=== PATIENT | female | born 1965 | race Caucasian/White ===

== ENCOUNTER 2020-08-10 08:55 | Day surgery (SDC) | payer OTHER ==
[~2020-08-10 08:55] MED LIST: Lactated Ringers 1,000 ML IV SCH; Sodium Chloride 0.9% 10 ML SDV IV PRN; Sodium Chloride 0.9% 10 ML Syringe FLUSH PRN; Sodium Chloride 0.9% 2.5 ML Syringe FLUSH PRN; ceFAZolin 2 GM in Premix Bag 1 BAG IV ONE
--- NOTE | 2020-08-10 09:33 | PCM.PREANE ---
Preanesthetic Assessment - Anesthesia/Transfusion/Family Hx Anesthesia History: Prior Anesthesia Without Reaction Type of Anesthesia Reaction: Other (see below) (wakes up anxious after anesthesia) Family History of Anesthesia Reaction: No Transfusion History: No Prior Transfusion(s) Intubation History: Unknown - Review of Systems General: No Symptoms Pulmonary: No Symptoms Cardiovascular: No Symptoms Gastrointestinal: No Symptoms Neurological: No Symptoms Other: Reports: None - Physical Assessment Height: 5 ft 9 in Weight: 80.739 kg ASA Class: 1 Mental Status: Alert & Oriented x3 Airway Class: Mallampati = 1 Dentition: Reports: Normal Dentition Thyro-Mental Finger Breadths: 3 Mouth Opening Finger Breadths: 3 ROM/Head Extension: Full Lungs: Clear to Auscultation, Normal Respiratory Effort Cardiovascular: Regular Rate, Regular Rhythm - Lab Values: Laboratory Last Values WBC 6.86 K/uL (4.0-11.0) 08/06/20 08:21 RBC 4.96 M/uL (4.30-5.90) 08/06/20 08:21 Hgb 14.9 g/dL (12.0-16.0) 08/06/20 08:21 Hct 46.8 % (36.0-46.0) H 08/06/20 08:21 MCV 94.4 fL (80.0-98.0) 08/06/20 08:21 MCH 30.0 pg (27.0-32.0) 08/06/20 08:21 MCHC 31.8 g/dL (31.0-37.0) 08/06/20 08:21 RDW Std Deviation 44.6 fl (28.0-62.0) 08/06/20 08:21 RDW Coeff of Yarelis 13 % (11.0-15.0) 08/06/20 08:21 Plt Count 256 K/uL (150-400) 08/06/20 08:21 MPV 10.30 fL (7.40-12.00) 08/06/20 08:21 Nucleated RBC % 0.0 /100WBC 08/06/20 08:21 Nucleated RBCs # 0 K/uL 08/06/20 08:21 - Allergies Allergies/Adverse Reactions: Allergies Allergy/AdvReac Type Severity Reaction Status Date / Time seasonal Allergy Itching Uncoded 08/04/20 09:04 - Blood Blood Available: No - Anesthesia Plan Pre-Op Medication Ordered: None - Acknowledgements Anesthesia Type Planned: General Anesthesia Pt an Appropriate Candidate for the Planned Anesthesia: Yes Alternatives and Risks of Anesthesia Discussed w Pt/Guardian: Yes Pt/Guardian Understands and Agrees with Anesthesia Plan: Yes PreAnesthesia Questionnaire HEENT History: Reports: Impaired Vision Other HEENT History: wears glasses Cardiovascular History: Reports: None, Other (See Below) (varicose veins) Respiratory History: Reports: None Gastrointestinal History: Reports: None Genitourinary History: Reports: Other (See Below) Other Genitourinary History: urinary urgency 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: Musculoskeletal History: Reports: Fracture Other Musculoskeletal History: states fractured right index finger in the past Neurological History: Reports: None Psychiatric History: Reports: None Endocrine/Metabolic History: Reports: None Hematologic History: Reports: None Immunologic History: Reports: None Oncologic (Cancer) History: Reports: None Dermatologic History: Reports: None - Infectious Disease History Infectious Disease History: Reports: None - Past Surgical History Head Surgeries/Procedures: Reports: None HEENT Surgical History: Reports: Tonsillectomy Cardiovascular Surgical History: Reports: None GI Surgical History: Reports: None Female Surgical History: Reports: Hysterectomy Other Female Surgeries/Procedures: had anterior\posterior repair when had hysterectomy in 2008 Musculoskeletal Surgical History: Reports: Other (See Below) (rt. index finger surgery ') - SUBSTANCE USE Tobacco Use Status *Q: Never Tobacco User - HOME MEDS Home Medications: Home Meds Cartilage/Collagen/Bor/Hyalur [Joint Health Tablet] 1 tab PO ASDIRECTED 08/04/20 [History] Multivit-Min/Iron/Folic/Icj940 [Hair, Skin and Nails Tablet] 3 tab PO ASDIRECTED 08/04/20 [History] Multivitamin [Multi-Vitamin Daily] 1 tab PO ASDIRECTED 08/04/20 [History] - CURRENT (IN HOUSE) MEDS Current Meds: Current Medications Lactated Ringer's (Ringers, Lactated) 1,000 mls @ 125 mls/hr IV ASDIRECTED LEROY Sodium Chloride (Saline Flush) 10 ml FLUSH ASDIRECTED PRN PRN Reason: Keep Vein Open Sodium Chloride (Saline Flush) 2.5 ml FLUSH ASDIRECTED PRN PRN Reason: Keep Vein Open Sodium Chloride (Normal Saline) 10 ml IV ASDIRECTED PRN PRN Reason: IV Use Discontinued Medications Cefazolin Sodium/Dextrose 2 gm (/ Premix) 50 mls @ 100 mls/hr IV ONETIME ONE Stop: 08/10/20 05:29
[2020-08-10] MEDS ORDERED: Midazolam 1 MG/ML 2 ML SDV ONE (09:43)
[2020-08-10] MEDS ORDERED: fentaNYL 100 MCG/2 ML SDV ONE (09:43)
[2020-08-10] MEDS ORDERED: ceFAZolin/Dextrose,Iso-Osmotic 2 GM/50 ML Duplex Bag IV ONE (10:14)
[2020-08-10] MEDS ORDERED: Dexamethasone 4 MG/ML 5 ML MDV ONE (10:15)
[2020-08-10] MEDS ORDERED: Ondansetron 4 MG/2 ML SDV ONE (10:15)
[2020-08-10] MEDS ORDERED: fentaNYL 100 MCG/2 ML SDV IVPUSH PRN (10:58)
[2020-08-10] MEDS ORDERED: Naloxone 0.4 MG/ML Syringe IVPUSH PRN (10:58)
[2020-08-10] MEDS ORDERED: Albuterol 0.083% 2.5 MG/3 ML Neb Soln NEB PRN (10:58)
[2020-08-10] MEDS ORDERED: Ondansetron 4 MG/2 ML SDV IVPUSH PRN (10:58)
[2020-08-10] MEDS ORDERED: 50% Dextrose in Water 50 ML Syringe IVPUSH PRN (10:58)
[2020-08-10] MEDS ORDERED: Atropine 0.1 MG/ML 10 ML Syringe IVPUSH PRN ×2 (10:58)
[2020-08-10] MEDS ORDERED: HYDROmorphone 2 MG/ML Syringe IVPUSH PRN (10:58)
[2020-08-10] MEDS ORDERED: EPINEPHrine 1:10,000 1 MG/10 ML Syringe IVPUSH PRN (10:58)
[2020-08-10] MEDS ORDERED: ePHEDrine 50 MG/ML SDV ONE (11:00)
[2020-08-10] MEDS ORDERED: Propofol 200 MG/20 ML SDV ONE (11:23)
--- NOTE | 2020-08-10 11:28 | PCM.OPNOTE ---
- General Post-Op/Procedure Note Date of Surgery/Procedure: 08/10/20 Operative Procedure(s): Anterior colporrhaphy Findings: Grade 3 cystocele Pre Op Diagnosis: Symptomatic grade 3 cystocele Post-Op Diagnosis: Same Anesthesia Technique: General LMA Primary Surgeon: Aleah Adan Fluid Replacement, Intraop: 800 EBL in mLs: 30 Complications: None Condition: Stable Free Text/Narrative:: Dictation [id number]
[2020-08-10] MEDS ORDERED: Ketorolac 30 MG/ML SDV ONE (11:29)
[2020-08-10] MEDS ORDERED: Bupivacaine 0.25% 10 ML SDV ONE (11:42)
[2020-08-10] MEDS ORDERED: Midazolam 1 MG/ML 2 ML SDV IVPUSH ONE (12:19)
--- NOTE | 2020-08-10 13:33 | PCM.POSTAN ---
POST ANESTHESIA ASSESSMENT - MENTAL STATUS Mental Status: Alert, Oriented - VITAL SIGNS Vital Signs: Last Vital Signs Temp 36.3 C 08/10/20 12:00 Pulse 57 L 08/10/20 13:15 Resp 15 08/10/20 13:15 BP 108/71 08/10/20 13:15 Pulse Ox 97 08/10/20 13:15 - RESPIRATORY Respiratory Status: Respiratory Rate WNL, Airway Patent, O2 Saturation Stable - CARDIOVASCULAR CV Status: Pulse Rate WNL, Blood Pressure Stable - GASTROINTESTINAL GI Status: No Symptoms - PAIN Pain Score: 0 - POST OP HYDRATION Hydration Status: Adequate & Stable - OBSERVATIONS Free Text/Narrative:: No anesthesia problems
--- NOTE | 2020-08-10 14:10 | OR ---
SURGEON: Aleah Adan M.D. DATE OF PROCEDURE: 08/10/2020 PREOPERATIVE DIAGNOSIS: Symptomatic grade 3 cystocele. POSTOPERATIVE DIAGNOSIS: Symptomatic grade 3 cystocele. PROCEDURE: Anterior colporrhaphy. PRIMARY SURGEON: Aleah Adan MD TAX MAP TECHNICIAN: Mao Gonzalez MD ANESTHESIA: General LMA. FLUIDS: 800 mL of crystalloid. ESTIMATED BLOOD LOSS: 30 mL. COMPLICATIONS: None known. FINDINGS: Grade 3 cystocele, recurrent. DISPOSITION: The patient to PACU, stable. PROCEDURE DETAILS: Moira Barr is a 55-year-old female who has had ongoing difficulties with a recurrent anterior cystocele. On examination, she does have a grade 3 cystocele. After discussing the options, she would like to proceed with surgical intervention. Risks of procedure have been discussed. Proper consent obtained. The patient was taken to the operating room where she underwent general LMA, was placed in modified dorsal lithotomy position, was prepped and draped in usual sterile fashion. SCDs to lower extremities. Tabares to gravity. A time-out was performed. A weighted speculum was introduced in the vagina. Just below the urethral meatus, midline of the vaginal mucosa was grasped with an Allis clamp. Hydrodissection along the midline vaginal mucosa was now performed with 0.25% Marcaine and saline. See nurse's notes for total amount of local dispensed during the procedure. A midline sagittal vaginal mucosa incision was now created with a 15 blade scalpel to the base of the cystocele just above the vaginal cuff. The edges of the vaginal mucosa were now grasped on either side with Allis clamps and sharp and blunt dissection was utilized to excise the underlying muscularis tissue from the overlying mucosa until a more lateral stronger tissue was able to be isolated. At this point, the lateral muscularis tissue was replicated using 2-0 Vicryl with inverted mattress suture technique reducing the defect. This was done in serial fashion. Area along the midline that still had some defect noted was replicated with a secondary layer. The defect was nicely reduced at this point. The excess vaginal mucosa was now trimmed with Velasco scissors and mucosa was replicated with 2-0 Vicryl in continuous running locked fashion. Hemostasis appeared evident. The vaginal packing was now gently placed. Tabares catheter remained in place. Sponge, instrument, and needle count was correct. The patient will go to the PACU in stable condition, specimen to pathology. MUSA / JOSEFINA /[id number]
--- NOTE | 2020-08-10 14:59 | PCM48HPAN ---
Post Anesthesia Note - EVALUATION WITHIN 48HRS OF ANESTHETIC Vital Signs in Normal Range: Yes Patient Participated in Evaluation: Yes Respiratory Function Stable: Yes Airway Patent: Yes Cardiovascular Function Stable: Yes Hydration Status Stable: Yes Pain Control Satisfactory: Yes Nausea and Vomiting Control Satisfactory: Yes Mental Status Recovered: Yes Vital Signs: Last Vital Signs Temp 36.3 C 08/10/20 12:00 Pulse 57 L 08/10/20 13:15 Resp 15 08/10/20 13:15 BP 108/71 08/10/20 13:15 Pulse Ox 97 08/10/20 13:15 - COMMENTS/OBSERVATIONS Free Text/Narrative:: NO anesthesia problems
[2020-08-10] MEDS ORDERED: Acetaminophen 500 MG Tab ONE (15:15)
[2020-08-10] MEDS ORDERED: Acetaminophen 500 MG Tab PO ONE (15:16)
== END 2020-08-10 16:05 | disposition home or self-care (01) ==
LOC: MW.SDS 08:55
PROVIDERS: ATTEND Obstetrics & Gynecology
DX: N81.10 Cystocele, unspecified (principal); Z79.899 Other long term (current) drug therapy; Z98.890 Other specified postprocedural states; Z82.49 Family history of ischemic heart disease and other diseases of the circulatory system; Z01.812 Encounter for preprocedural laboratory examination; Z20.828 Contact with and (suspected) exposure to other viral communicable diseases
CPT/HCPCS: 36415; 57240; 85027; A9270; J0131; J0690; J1100; J1885; J2001; J2250; J2704; J3490; J7120; 00942; 88302; J2405; J3010